=== PATIENT | female | born 1990 | race Caucasian/White ===

== ENCOUNTER 2017-08-02 16:39 | Emergency (ER) | payer OTHER ==
--- NOTE | 2017-08-02 17:03 | PDOC ---
Rapid Medical Evaluation Time Seen by Provider: 08/02/17 16:42 Medical Evaluation: I have performed a brief in-person evaluation of this patient. The patient presents with a chief complaint of: atraumatic right knee pain x 2 weeks Pertinent physical exam findings: no swelling. TTP of both medial and lateral joint line of right knee, lateral worse. Patient can ambulate with slight limp but was wheeled in wheelchair. I have ordered the following: xray right knee, hcg The patient will proceed to the ED for further evaluation.
[2017-08-02 17:04] VITALS: BP 136/86; PULSE 93; TEMP 98.8; BMI 21.4
[2017-08-02] MEDS ORDERED: KETOROLAC TROMETHAMINE 60 MG/2 ML VIAL IM ONE (18:32)
--- NOTE | 2017-08-02 18:32 | PDOC ---
History of Present Illness - General Chief Complaint: Pain Stated Complaint: KNEE PAIN Time Seen by Provider: 08/02/17 16:42 History Source: Patient Exam Limitations: No Limitations - History of Present Illness Initial Comments: 08/02/17 18:35 26-year-old female presents to the ED with complaints of left knee pain for the past 2 days worsened with ambulation. Patient states did not injure the area recently and denies any previous injury or surgery to the affected area. Patient states on orthopedist and has an MRI scheduled for next week but states cannot wait since the pain continues and is unable to ambulate long distances secondary to pain. Patient states took nothing for the pain and is requesting something for the above. Patient denies any sensory changes distally, radiation of pain, or skin discoloration. Severity: mild Associated Symptoms: reports: denies symptoms Past History - Travel Traveled outside of the country in the last 30 days: No - Past Medical History Allergies/Adverse Reactions: Allergies Allergy/AdvReac Type Severity Reaction Status Date / Time No Known Allergies Allergy Verified 08/02/17 17:00 Home Medications: Ambulatory Orders NK [No Known Home Medication] 08/02/17 COPD: No Other medical history: DENIES. - Suicide/Smoking/Psychosocial Hx Smoking History: Never smoked Patient Lives Alone: No Lives with/in: parents Review of Systems - Review of Systems Able to Perform ROS?: Yes Constitutional: No: Symptoms Reported Respiratory: No: Symptoms reported Cardiac (ROS): No: Symptoms Reported Musculoskeletal: Yes: Joint Pain (knee), Joint Swelling (knee) Integumentary: No: Symptoms Reported Neurological: No: Symptoms reported *Physical Exam - Vital Signs Last Vital Signs Temp Pulse Resp BP Pulse Ox 98.8 F 93 H 19 136/86 98 08/02/17 17:00 08/02/17 17:00 08/02/17 17:00 08/02/17 17:00 08/02/17 17:00 - Physical Exam General Appearance: Yes: Nourished, Appropriately Dressed. No: Apparent Distress Vascular Pulses: Dorsalis-Pedis (R): 2+, Doralis-Pedis (L): 2+ Extremity: positive: Normal Inspection, Normal Range of Motion, Tender (left patella over the LCL) Integumentary: positive: Normal Color, Warm, Moist Neurologic: positive: Motor Strength 5/5 (ambulatory) ED Treatment Course - ADDITIONAL ORDERS Additional order review: Laboratory Results 08/02/17 17:16 Urine HCG, Qual Negative Medical Decision Making - Medical Decision Making 08/02/17 18:37 Patient here with complaints of left knee pain. Patient scheduled for an MRI next week. Patient requesting something for pain. Patient hasn't had tenderness over the LCL. Patient ordered for crutches and Toradol IM. Patient to be discharged home with Motrin 600 mg tablets. *DC/Admit/Observation/Transfer Diagnosis at time of Disposition: Left anterior knee pain - Discharge Dispostion Disposition: HOME Condition at time of disposition: Good - Referrals Referrals: Edmund Austin [Primary Care Provider] - - Patient Instructions Printed Discharge Instructions: DI for Knee Pain Additional Instructions: Take Motrin as recommended and use crutches during the day. Please follow-up with the orthopedist and have MRI as scheduled next week - Post Discharge Activity
[2017-08-02] MEDS ORDERED: KETOROLAC TROMETHAMINE 60 MG/2 ML VIAL ONE (18:34)
[2017-08-02 20:04] LABS: URINE APPEARANCE CLOUDY; URINE BILIRUBIN NEGATIVE (NEGATIVE); URINE BLOOD NEGATIVE (NEGATIVE); URINE COLOR YELLOW; URINE GLUCOSE (UA) NEGATIVE (NEGATIVE); URINE KETONE NEGATIVE (NEGATIVE); URINE LEUK ESTERASE 1+ (NEGATIVE); URINE NITRITE NEGATIVE (NEGATIVE); URINE PROTEIN NEGATIVE (NEGATIVE); URINE UROBILINOGEN NEGATIVE mg/dL (0.2-1.0)
[2017-08-02 20:07] LABS: EPI CELLS FEW /HPF (FEW); URINE BACTERIA MANY /hpf (NONE SEEN); URINE MUCUS RARE
== END 2017-08-02 18:45 | disposition home or self-care (01) ==
LOC: JERFT 16:39
PROC: 3E0233Z Introduction of Anti-inflammatory into Muscle, Percutaneous Approach (ICD-10-PCS; principal; 2017-08-02)
DX: M25.562 Pain in left knee (principal)
CPT/HCPCS: 73560-TC-RT-FY; 81003; 81015; 84703; 99281-25